=== PATIENT | female | born 1975 | race Caucasian/White ===

== ENCOUNTER → 2017-08-29 11:24 | Outpatient (CLI) | payer OTHER, SELFPAY ==
--- NOTE | 2017-08-29 | DI.CT.S_ITS ---
PROCEDURE: CT PELVIS W CON INDICATIONS: Pelvic pressure and pain; history of left ovarian dermoid resection. TECHNIQUE: After the administration of oral contrast and intravenous contrast, 5 mm thick sections acquired from the iliac crests to the symphysis. 5 mm thick coronal and sagittal reformats were acquired. For radiation dose reduction, the following was used: automated exposure control, adjustment of mA and/or kV according to patient size. COMPARISON: None. FINDINGS: Image quality: Excellent. Peritoneum and bowel: Contrast enhanced bowel loops demonstrate normal wall thickness and caliber. No free fluid or air. Normal appendix. Genitourinary: Bladder wall thickness is normal. Ovaries are within normal limits. No evidence of recurrent dermoid. Nodes and vessels: No iliac, pelvic, or inguinal adenopathy. Iliac vessels demonstrate normal size and enhancement. Bones: No suspicious bony lesions. Miscellaneous: No inguinal hernias. IMPRESSION: 1. No acute process. 2. Normal appendix. Dictated by: Rell Way M.D. on 08/29/2017 at 13:00 Approved by: Rell Way M.D. on 08/29/2017 at 13:02
== END ==
PROVIDERS: PCP Internal Medicine; Visit Provider Internal Medicine
DX: R10.2 Pelvic and perineal pain (principal)
CPT/HCPCS: 72193; Q9967

== ENCOUNTER → 2023-12-11 06:58 | Outpatient (CLI) | payer OTHER, SELFPAY ==
--- NOTE | 2023-12-11 07:00 | DI.US.S_ITS ---
PROCEDURE: US PELVIC COMPLETE INDICATIONS: abnormal uterine bleeding TECHNIQUE: Real-time scanning was performed of the pelvic organs, with image documentation. Additional endovaginal scanning was necessary due to incomplete visualization of the adnexal and endometrial structures by transabdominal scanning. Thirty-five images COMPARISON: [facility], US, US PELVIC COMPLETE, 08/19/2017, 21:45. FINDINGS: Uterus: Uterus is anteverted and normal in size at 11.5 x 7.5 x 5.5 cm. The myometrium is homogeneous. The endometrium echo complex measures approximately 1.1 cm combined thickness which may be related to stage of menstruation although in perimenopausal or postmenopausal woman endometrial hyperplasia or other process could be considered. Ovaries: The right ovary measures approximately 4.4 x 2.8 x 2.8 cm, with a calculated ovarian volume of 2.3 cc. Follicle versus small cyst 1.8 x 1.8 x 1.4 cm new compared to the prior exam. The left ovary measures approximately 3.0 x 2.1 x 1.6 cm, with a calculated ovarian volume of 5.2 cc. The ovaries have a normal sonographic appearance. Less than 12 follicles can be seen in each ovary. No adnexal masses are seen. Other: No pathologic free abdominal or pelvic fluid. IMPRESSION: Right 1.8 cm ovarian/adnexal cyst versus follicle new compared to the prior exam. The endometrium echo complex measures approximately 1.1 cm thickness which may be related to stage of menstruation although in perimenopausal or postmenopausal woman endometrial hyperplasia or other process could be considered. Follow-up following next menstrual cycle could be considered. Dictated by: Nazario Pichardo M.D. on 12/11/2023 at 13:04 Approved by: Nazario Pichardo M.D. on 12/11/2023 at 13:28
[2023-12-11 09:11] LABS: Prothrombin Time 11.2 SECONDS (9.4-12.5)
[2023-12-11 09:14] LABS: PTT Partial Thromboplastin Tim 30 SECONDS (25.1-36.5)
== END ==
LOC: US 06:59
PROVIDERS: PCP Registered Nurse; Referring Provider Specialist; Visit Provider Specialist
DX: N92.6 Irregular menstruation, unspecified (principal); N93.9 Abnormal uterine and vaginal bleeding, unspecified
CPT/HCPCS: 76830; 76856; 85610; 85730

== ENCOUNTER → 2023-12-15 15:08 | Outpatient (CLI) | payer OTHER, SELFPAY ==
--- NOTE | 2023-12-15 15:09 | DI.MG.S_ITS ---
BILATERAL DIGITAL SCREENING MAMMOGRAM 3D/2D WITH CAD: 12/15/2023 CLINICAL: Routine screening. Comparison is made to exam dated: 09/10/2012 mammogram - [facility]. There are scattered areas of fibroglandular density (category b / 25%-50% glandular tissue). Current study was also evaluated with a Computer Aided Detection (CAD) system. No significant masses, calcifications, or other findings are seen in either breast. There has been no significant interval change. IMPRESSION: NEGATIVE There is no mammographic evidence of malignancy. A 1 year screening mammogram is recommended. Based on the Tyrer Cuzick model (a risk assessment model) the patient's lifetime risk is 6.1% and her 10 year risk is 1.2%. According to the ACR, ACS, and NCCN guidelines, an annual breast MRI exam along with mammogram is recommended if the patient's lifetime risk is 20% or greater. This exam was interpreted at Station ID: [id number]. NOTE: For mammograms, a report in lay terms will be sent to the patient. Approximately 15% of breast malignancies will not be visualized mammographically. In the management of a palpable breast mass, a negative mammogram must not discourage biopsy of a clinically suspicious lesion. Electronically Signed By: Raf becerril/maria g:12/15/2023 16:53:38 letter sent: Normal Exam ACR BI-RADS Category 1: Negative
== END ==
PROVIDERS: PCP Registered Nurse; Referring Provider Specialist; Visit Provider Specialist
DX: Z12.31 Encounter for screening mammogram for malignant neoplasm of breast (principal)
CPT/HCPCS: 77063; 77067

== ENCOUNTER 2024-03-07 11:16 | Day surgery (SDC) | payer OTHER, SELFPAY ==
[2024-03-01 10:52] VITALS: BMI 39.4
--- NOTE | 2024-03-07 | PATH_ITS ---
[facility] Accession Number: [id number] No. of containers..01 Tissue . 01 Material submitted: . endometrium - ENDOMETRIAL CURETTINGS . 01 Diagnosis: ENDOMETRIAL CURETTINGS: Portions of proliferative endometrium; negative for endometrioid intraepithelial neoplasia or malignancy. [facility] 03/11/2024 1050 Local . 01 Electronically signed: . Ana Luisa Fuentes MD, Pathologist NPI- [id number] . 01 Gross description: . ENDOMETRIAL CURETTINGS: Received in formalin are minute fragments of mucoid and hemorrhagic material measuring 2.0 x 2.0 x 0.2 cm in aggregate. Submitted in toto in 1 cassette. /[facility] 03/08/2024 2340 Local . 01 Pathologist provided ICD-10: N93.9 . 01 CPT . 608893 Specimen Comment: A courtesy copy of this report has been sent to [facility]ology Performed at: [address] [address], [place], [place] [id number] MD Anastacio Jo MD Phone: [phone]
[2024-03-07] MEDS: LACTATED RINGERS 1,000 ML 42 ML IV (11:44)
[2024-03-07] MEDS: ACETAMINOPHEN 325 MG TABLET 975 MG PO (11:44)
[2024-03-07 11:52] VITALS: BP 111/58; PULSE 77; RESP 16; TEMP 36.4; O2SAT 98; BMI 38.2
--- NOTE | 2024-03-07 12:28 | PM.PREOP ---
Pre-operative Note Interval Note History & Physical reviewed/Exam performed by Physician: Yes Changes to H&P: No H&P completed within 30 days and has changed as indicated here:: see H&P from 03/01/24
--- NOTE | 2024-03-07 13:34 | P.OP_ITS ---
Operative Date/Time/Diagnoses Date of procedure: 03/07/24 Time of procedure: 13:00 Pre-op diagnosis: Abnormal uterine bleeding Heavy menstrual bleeding Post-op diagnosis: same Procedure & Clinicians Procedure: Diagnostic hysteroscopy Endometrial ablation Dilation and curettage Same procedure as scheduled: Yes Indications: 48yo F with history of abnormal uterine bleeding with heavy menstrual bleeding, unresponsive to other management options. Thus she was counseled and consented for endometrial ablation. Surgeon: Tiana David Click Yes if Unassisted: Yes Anesthesia Type: General Operative Notes Findings: Normal appearing endometrial cavity. No endometrial pathology identified. Bilateral tubal ostia visualized. Specimen(s): other (uterine curettings) Estimated Blood Loss (mL): 3 Blood products transfused: none Procedure in detail: The risks, benefits, indications and alternatives of the procedure were reviewed with the patient and informed consent was obtained. The pt was taken to the operating room where general anesthesia was obtained without difficulty. The pt was then placed in the low lithotomy position using gel-padded Shivam stirrups. SCDs were placed for VTE prophylaxis. Pt was then prepped and draped in the sterile fashion. A sterile speculum was placed in the patient?s vagina and the cervix was visualized. The single-tooth tenaculum was then used to grasp the anterior lip of the cervix. The hysteroscope was first primed and pressure set to gravity. The hysteroscope was then advanced through the endocervical canal under direct visualization. After distension of the uterus with warm saline, a systematic examination of the intrauterine cavity was performed. The endometrial cavity appeared normal and the tubal ostia were visualized bilaterally. The hysteroscope was then removed under direct visualization. A sharp curettage was then performed until a gritty texture was noted. Tissue obtained was sent to pathology for review. The Novasure sounding device was then used to measure the uterine cavity length and cervical length, which were 6cm and 4cm respectively. The Novasure device was then placed into the uterine cavity and deployed. The usual maneuvers were performed per the salesperson jewelry?s guidelines and a cavity width of 4.1cm was obtained. The cavity integrity was assessed and found to be adequate. The Novasure device was then activated and the cavity was ablated for 1min 11sec at a power of 135 garnett. The Novasure device was then carefully removed from the endometrial cavity. The hysteroscope was then inserted into the endocervical canal under direct visualization. After distension of the uterus with warm saline, the cavity was re-examined and found to have appropriate changes following ablation. The hysteroscope was then removed under direct visualization. The single tooth tenaculum was removed from the anterior lip of the cervix. The tenaculum site was noted to be hemostatic with direct pressure. All instruments were then removed from the vagina. At the completion of the case the sponge and needle counts were correct x 2.? The patient tolerated the procedure well and was taken to the PACU in stable condition. Complications: none Post-operative Condition: stable Disposition: same day surgery Plan for aftercare: Discharge to home once meeting PACU criteria.
[2024-03-07 13:44] VITALS: BP 113/60; PULSE 88; RESP 16; TEMP 36.2; O2SAT 100
[2024-03-07 13:50] VITALS: BP 120/70; PULSE 78; RESP 16; O2SAT 98
[2024-03-07 13:57] VITALS: BP 110/70; PULSE 78; RESP 16; TEMP 36.8; O2SAT 98
[2024-03-07] MEDS: ONDANSETRON 4 MG/2 ML INJ IV (14:23)
[2024-03-07 14:30] VITALS: BP 120/67; PULSE 82; RESP 16; O2SAT 94
== END 2024-03-07 14:35 | disposition home or self-care (01) ==
PROVIDERS: PCP Registered Nurse; Referring Provider Student in an Organized Health Care Education/Training Program; Visit Provider Student in an Organized Health Care Education/Training Program
PROC: 0U5B8ZZ Destruction of Endometrium, Via Natural or Artificial Opening Endoscopic (ICD-10-PCS; CPT 58563; principal; 2024-03-07 12:45)
DX: N93.9 Abnormal uterine and vaginal bleeding, unspecified (principal)
CPT/HCPCS: 58563; J1100; J1885; J2250; J2405; J2704; J3010

== ENCOUNTER → 2024-06-17 14:45 | Outpatient (CLI) | payer OTHER, SELFPAY ==
--- NOTE | 2024-06-17 14:47 | DI.NM.S_ITS ---
PROCEDURE: NM EXERCISE TREADMILL NON NUC COMPARISON: None. INDICATIONS: Tachycardia,dyspnea FINDINGS: The patient exercised for 6 minutes and 49 seconds reaching 98% of maximum predicted heart rate. Appropriate BP response to exercise. Mildly reduced exercise capacity (RADHA +15%). No angina and no diagnostic ST changes during exercise or recovery. No PVCs present. IMPRESSION: Low risk, normal treadmill ECG only stress test from inducible ischemia standpoint. Mildly reduced exercise capacity (RADHA +15%). Dictated by: Zeus Lyn MD on 06/18/2024 at 12:48 Approved by: Zeus Lyn MD on 06/18/2024 at 12:51
== END ==
PROVIDERS: PCP Registered Nurse; Referring Provider Registered Nurse; Visit Provider Registered Nurse
DX: R00.0 Tachycardia, unspecified (principal)
CPT/HCPCS: 93017

== ENCOUNTER → 2024-09-10 16:37 | Outpatient (CLI) | payer OTHER, SELFPAY ==
--- NOTE | 2024-09-10 16:41 | DI.RAD.S_ITS ---
PROCEDURE: XR CERVICAL SPINE 4V OR 5V INDICATIONS: BILATERAL NUMBNESS/TINGLING OF ARMS/LEGS TECHNIQUE: Five views of the cervical spine acquired. COMPARISON: None. FINDINGS: Cervical spine curvature and alignment: Normal. Bones: There are no osseous abnormalities. Disc spaces: Mild C4-5 moderate C5-6 mild C6-7 degenerative disc disease Intervertebral foramen: Mild right C4-5 and left C3-4 IV foraminal narrowing due to degenerative spurs noted Soft tissues: No soft tissue swelling, calcification or mass. IMPRESSION: Degeneration Dictated by: Gerson Valles M.D. on 09/12/2024 at 12:31 Approved by: Gerson Valles M.D. on 09/12/2024 at 12:32
== END ==
LOC: RAD 16:39
PROVIDERS: PCP Registered Nurse; Referring Provider Registered Nurse; Visit Provider Registered Nurse
DX: M50.321 Other cervical disc degeneration at C4-C5 level (principal); M48.02 Spinal stenosis, cervical region; R20.0 Anesthesia of skin; R20.2 Paresthesia of skin
CPT/HCPCS: 72050

== ENCOUNTER → 2024-09-18 13:55 | Outpatient (CLI) | payer OTHER, SELFPAY ==
--- NOTE | 2024-09-18 13:57 | DI.MRI.S_ITS ---
PROCEDURE: MR CERVICAL SPINE WO CON INDICATIONS: BILATERAL NUMBNESS TECHNIQUE: Noncontrast sagittal T1 spin echo and T2 fast spin echo, sagittal STIR, and axial gradient echo or T2 fast spin echo through the cervical spine. Patient terminated exam V4 obliques were. COMPARISON: [facility], CR, XR CERVICAL SPINE 4V OR 5V, 09/10/2024, 16:51. FINDINGS: Image quality: Excellent. Alignment and Curvature: There is cervical straightening with trace retrolisthesis of C4 on C5-C5-C6-C6. Bone Marrow: Marrow demonstrates normal overall signal. Spinal Cord: Visualized spinal cord has normal size and signal. No cerebellar tonsillar herniation. Paraspinous Soft Tissues: No paravertebral masses. Prevertebral soft tissues are normal in thickness. Discs: Minimal disc desiccation C5-6 C6-7. C2-C3: No disc bulge, spinal stenosis or foraminal narrowing. C3-C4: No disc bulge, spinal stenosis or foraminal narrowing. C4-C5: Trace disc bulge with effacement anterior sac. No foraminal. C5-C6: Mild disc bulge with mild stenosis. No foraminal narrowing. C6-C7: Trace disc bulge with minimal spinal stenosis. No foraminal narrowing. C7-T1: No disc bulge, spinal stenosis or foraminal narrowing. IMPRESSION: Minimal early degenerative changes. Dictated by: Iza Cordova M.D. on 09/18/2024 at 20:24 Approved by: Iza Cordova M.D. on 09/18/2024 at 20:30
== END ==
PROVIDERS: PCP Registered Nurse; Referring Provider Registered Nurse; Visit Provider Registered Nurse
DX: M50.322 Other cervical disc degeneration at C5-C6 level (principal); M48.02 Spinal stenosis, cervical region; R20.0 Anesthesia of skin; R20.2 Paresthesia of skin
CPT/HCPCS: 72141